=== PATIENT | female | born 1985 | race American Indian/Alaskan Native ===

== ENCOUNTER 2020-08-30 08:34 | Emergency (ER) | payer SELFPAY ==
[2020-08-30 08:43] VITALS: BP 139/104
--- NOTE | 2020-08-30 09:13 | Emergency Department Report ---
Chief Complaint: Medical Clearance Stated Complaint: FOOT PAIN Time Seen by Provider: 08/30/20 09:11 - HPI History of Present Illness: 35-year-old female presents to the ER requesting a note from a doctor to state that she can wear her regular shoes to work. Patient states that she works at [employer] where she does a lot of standing for about 10 hours. She is required to wear steel toe shoe which is provided by the company and she states that it hurts her feet. She states that she been working there for about a month. She states that she was told by her boss that she can get a doctor's note stating that she can wear her regular shoes. - Exam Vital Signs: Vital Signs 08/30/20 08:40 Temperature 98.0 F Pulse Rate 108 H Respiratory 16 Rate Blood Pressure 139/104 O2 Sat by Pulse 100 Oximetry MSE screening note: Focused history and physical exam performed. Due to findings the following was ordered: ED Medical Decision Making - Medical Decision Making 35-year-old female presents to the ER requesting a note from a doctor to state that she can wear her regular shoes to work. Patient states that she works at [employer] where she does a lot of standing for about 10 hours. She is required to wear steel toe shoe which is provided by the [employer] and she states that it hurts her feet. She states that she been working there for about a month. She states that she was told by her boss that she can get a doctor's note stating that she can wear her regular shoes Patient is well-appearing, not toxic, and is not in any distress. She is neurologically intact with a normal gait. Physical exam of her feet are unremarkable. Patient does not appear to have an medical emergency at this time. Informed patient that I will give her referral to a primary care doctor who can write her the letter that she requires for her shoes. Patient expressed understanding of instructions and agree with plan. Patient was stable at time of discharge. ED Disposition for [facility] [place] Impression: Foot pain, bilateral Disposition: DC-01 TO HOME OR SELFCARE Is pt being admited?: No Does the pt Need Aspirin: No Condition: Stable Instructions: Foot Pain Additional Instructions: Follow up with the primary care doctor listed on your discharge instructions. He should be able to help with writing the note that you need for work about your shoes. Referrals: CORINNE MENA MD [Staff Physician] - 3-5 Days Forms: Work/School Release Form(ED) Time of Disposition: 09:13 ED Review of Systems ROS: Stated complaint: FOOT PAIN Other details as noted in HPI Comment: All other systems reviewed and negative Musculoskeletal: arthralgia. denies: joint swelling ED Physical Exam - General Limitations: No Limitations General appearance: alert, in no apparent distress - Head Head exam: Present: atraumatic, normocephalic, normal inspection - Eye Eye exam: Present: normal appearance, PERRL, EOMI Pupils: Present: normal accommodation - Respiratory Respiratory exam: Present: normal lung sounds bilaterally. Absent: respiratory distress - Cardiovascular Cardiovascular Exam: Present: regular rate, normal rhythm, normal heart sounds - Extremities Exam Extremities exam: Present: other (No apparent tenderness to palpation to feet. No swelling, no ecchymosis, no deformity, no open wound; range of motion of the foot and toes normal; pulses normal, sensation intact, cap refill normal) - Neurological Exam Neurological exam: Present: alert, oriented X3, CN II-XII intact, normal gait. Absent: motor sensory deficit
== END 2020-08-30 09:25 | disposition home or self-care (01) ==
LOC: ED 08:34
DX: M79.671 Pain in right foot (principal); M79.672 Pain in left foot
CPT/HCPCS: 99281